=== PATIENT | female | born 1980 | race Caucasian/White ===

== ENCOUNTER 2018-01-11 11:10 | Inpatient (IN) | payer OTHER ==
[~2018-01-11] VITALS: Ht 165.1 cm; Wt 90.7 kg
[~2018-01-11 11:10] MED LIST: CATAFLAM50 MG; LEVSIN/SL0.125 MG PO; NAPROXEN250 MG; NORFLEX30 MG/ML
[2018-01-12] MEDS ORDERED: ADVIL100 MG PO (14:01)
[2018-01-18] MEDS ORDERED: DOXYCYCLINE HY100 M2 PO (12:28)
[2018-01-18] MEDS ORDERED: FAMOTIDINE20 MG PO (12:28)
[2018-01-18] MEDS ORDERED: INTEGRA PLUS C1 EACH PO (12:28)
[2018-01-18] MEDS ORDERED: Neurin-Sl Tablet Sl SL (12:28)
[2018-01-18] MEDS ORDERED: B Complex CAPSULE PO (12:28)
== END 2018-01-18 13:07 | disposition home or self-care (01) | DRG 872 ==
LOC: ER 11:10 → MEDI 17:54 → MEDJ 20:06
PROC: 30233N1 Transfusion of Nonautologous Red Blood Cells into Peripheral Vein, Percutaneous Approach (ICD-10-PCS; principal; 2018-01-11)
PROC: BW21ZZZ Computerized Tomography (CT Scan) of Abdomen and Pelvis (ICD-10-PCS; 2018-01-11)
PROC: B246ZZZ Ultrasonography of Right and Left Heart (ICD-10-PCS; 2018-01-12)
PROC: B54NZZZ Ultrasonography of Left Upper Extremity Veins (ICD-10-PCS; 2018-01-15)
DX: R78.81 Bacteremia (principal); N39.0 Urinary tract infection, site not specified; Q61.2 Polycystic kidney, adult type; Q44.6 Cystic disease of liver; D50.0 Iron deficiency anemia secondary to blood loss (chronic); N93.8 Other specified abnormal uterine and vaginal bleeding; E28.2 Polycystic ovarian syndrome; E03.8 Other specified hypothyroidism; B95.3 Streptococcus pneumoniae as the cause of diseases classified elsewhere; K59.09 Other constipation; N20.0 Calculus of kidney; E66.8 Other obesity; D51.8 Other vitamin B12 deficiency anemias; I80.8 Phlebitis and thrombophlebitis of other sites

== ENCOUNTER 2018-01-26 12:49 | Inpatient (IN) | payer OTHER ==
[~2018-01-26] VITALS: Ht 165.1 cm; Wt 90.7 kg
[~2018-01-26 12:49] MED LIST changes: +ADVIL100 MG PO; +B Complex CAPSULE PO; +DOXYCYCLINE HY100 M2 PO; +FAMOTIDINE20 MG PO; +INTEGRA PLUS C1 EACH PO; +Neurin-Sl Tablet Sl SL
[2018-01-29] MEDS ORDERED: MEGESTROL ACETA40 MG PO (07:13)
== END 2018-01-29 08:57 | disposition home or self-care (01) | DRG 744 ==
LOC: ER 12:49 → OB/GYN 01-27 09:51
PROVIDERS: Obstetrics & Gynecology
PROC: 0UDB8ZX Extraction of Endometrium, Via Natural or Artificial Opening Endoscopic, Diagnostic (ICD-10-PCS; principal; 2018-01-28 14:45)
DX: N84.0 Polyp of corpus uteri (principal); Q61.2 Polycystic kidney, adult type

== ENCOUNTER 2018-02-25 12:12 | Outpatient (CLI) | payer OTHER ==
[~2018-02-25 12:12] MED LIST changes: +MEGESTROL ACETA40 MG PO
== END 2018-02-25 12:23 | disposition home or self-care (01) ==
LOC: LAB 12:12
DX: Z80.3 Family history of malignant neoplasm of breast (principal); D50.0 Iron deficiency anemia secondary to blood loss (chronic); N93.8 Other specified abnormal uterine and vaginal bleeding; E28.2 Polycystic ovarian syndrome; Q61.2 Polycystic kidney, adult type; Z82.71 Family history of polycystic kidney; D50.8 Other iron deficiency anemias; D51.8 Other vitamin B12 deficiency anemias; I10 Essential (primary) hypertension; D68.8 Other specified coagulation defects; D68.0 Von Willebrand disease

== ENCOUNTER 2018-02-26 09:18 | Outpatient (CLI) | payer OTHER | END 2018-02-26 09:33 | disposition home or self-care (01) | LOC: EKG 09:18 → LAB 09:18 → RAD 09:18 → EKG 09:33 | DX: Z01.818 Encounter for other preprocedural examination (principal); E03.8 Other specified hypothyroidism; I10 Essential (primary) hypertension; E78.2 Mixed hyperlipidemia; Z00.00 Encounter for general adult medical examination without abnormal findings ==

== ENCOUNTER 2018-03-05 08:30 | Inpatient (IN) | payer OTHER ==
[~2018-03-05] VITALS: Ht 165.1 cm; Wt 90.7 kg
[2018-03-05] MEDS ORDERED: SYNTHROID50 MCG PO (10:38)
[2018-03-14] MEDS ORDERED: POLY119PG PO (07:17)
[2018-03-14] MEDS ORDERED: GABAPENTIN800 MG PO (07:17)
[2018-03-14] MEDS ORDERED: GAS RELIEF125 MG PO (07:17)
[2018-03-14] MEDS ORDERED: IBUPROFEN800 MG PO (07:17)
[2018-03-14] MEDS ORDERED: NITROFURANTOIN100 MG PO (07:22)
== END 2018-03-14 08:30 | DRG 743 ==
LOC: O/R 03-11 04:45 → OB/GYN 03-11 04:45 → SURH 03-11 07:00 → OB/GYN 03-11 11:21
PROVIDERS: Obstetrics & Gynecology; Urology
PROC: 0T788DZ Dilation of Bilateral Ureters with Intraluminal Device, Via Natural or Artificial Opening Endoscopic (ICD-10-PCS; 2018-03-11)
PROC: 0UT90ZZ Resection of Uterus, Open Approach (ICD-10-PCS; principal; 2018-03-11 07:00)
PROC: 0UT70ZZ Resection of Bilateral Fallopian Tubes, Open Approach (ICD-10-PCS; 2018-03-11 07:00)
DX: D25.1 Intramural leiomyoma of uterus (principal); N93.8 Other specified abnormal uterine and vaginal bleeding; E03.8 Other specified hypothyroidism

== ENCOUNTER 2018-07-24 08:23 | Outpatient (CLI) | payer OTHER ==
[~2018-07-24 08:23] MED LIST changes: +GABAPENTIN800 MG PO; +GAS RELIEF125 MG PO; +IBUPROFEN800 MG PO; +NITROFURANTOIN100 MG PO; +POLY119PG PO; +SYNTHROID50 MCG PO
== END 2018-07-24 08:31 | disposition home or self-care (01) ==
LOC: LAB 08:23
DX: M25.50 Pain in unspecified joint (principal)

== ENCOUNTER 2018-08-23 08:22 | Emergency (ER) | payer OTHER ==
[~2018-08-23] VITALS: Ht 165.1 cm; Wt 90.7 kg
[2018-08-23] MEDS ORDERED: MECLIZINE HCL25 MG PO (12:03)
[2018-08-23] MEDS ORDERED: METOCLOPRAMIDE10 MG PO (12:03)
== END 2018-08-23 12:46 ==
LOC: ER 08:22
DX: R42 Dizziness and giddiness (principal); K29.70 Gastritis, unspecified, without bleeding